=== PATIENT | male | born 1950 | race Caucasian/White ===

== ENCOUNTER → 2018-07-20 08:41 | Outpatient (CLI) | payer OTHER, MEDICARE, SELFPAY ==
--- NOTE | 2018-07-20 | CI_ITS ---
Cerebrovascular Exam Indications: 785.9 Bruit. 780.4 Dizziness and giddiness. IMPRESSIONS 1. The bilateral vertebral arteries are patent with normal antegrade flow. 2. Study suggests 20-49% stenosis involving the right internal carotid artery. No change from the prior study. 3. Study suggests 20-49% (upper limit)stenosis involving the left internal carotid artery. History: Risk factors: Current tobacco use. Hypertension. Diabetes mellitus. Carotid duplex study. Complete study and Doppler flow study including spectral analysis, color and reyes scale imaging. Location: Vascular laboratory. Patient status: Outpatient. Tables: Arterial flow: + +--------+--------+ Location V sys V ed + +--------+--------+ Right CCA - proximal 91.9cm/s 11cm/s + +--------+--------+ Right CCA - distal 81.7cm/s 7.9cm/s + +--------+--------+ Right ECA 123cm/s 10.2cm/s + +--------+--------+ Right ICA - proximal 88cm/s 11.8cm/s + +--------+--------+ Right ICA - mid 45.6cm/s 13.4cm/s + +--------+--------+ Right ICA - distal 47.1cm/s 10.2cm/s + +--------+--------+ Right vertebral 70.7cm/s 1.6cm/s + +--------+--------+ Left CCA - proximal 70.7cm/s 11cm/s + +--------+--------+ Left CCA - distal 47.9cm/s 11.8cm/s + +--------+--------+ Left ECA 98.9cm/s 12.1cm/s + +--------+--------+ Left ICA - proximal 91.9cm/s 14.7cm/s + +--------+--------+ Left ICA - mid 65.1cm/s 10.7cm/s + +--------+--------+ Left ICA - distal 54.9cm/s 13.8cm/s + +--------+--------+ Left vertebral 61.3cm/s 10.8cm/s + +--------+--------+ Velocity ratios: + + + + + + Right, V sys Right, V ed Left, V sys Left, V ed + + + + + + Max ICA/dist CCA 1.08 1.7 1.92 1.25 + + + + + + (Report amended ) Electronically signed by: Adrian Chua [id number]
== END ==
PROVIDERS: PCP Family Medicine; Visit Provider Family Medicine
DX: R09.89 Other specified symptoms and signs involving the circulatory and respiratory systems (principal)
CPT/HCPCS: 93880

== ENCOUNTER 2020-04-14 00:57 | Emergency (ER) | payer MEDICARE, SELFPAY ==
[2020-04-14] VITALS (17 sets, daily range): BP systolic 90–210; BP diastolic 61–96; PULSE 70–110; RESP 15–98; TEMP 36.1–36.9; O2SAT 92–99; BMI 45.4
--- NOTE | 2020-04-14 00:53 | ECG_ITS ---
APPROVED REPORT Exam: Resting ECG HR:90 bpm ECG Measurements Heart Rate 90 AXES QRSd 116 QRS -82 QT 384 T 63 QTc 469 Conclusion Sinus rhythm,First Degree AV Block, with premature ventricular and PAC'S Ventricular Pacemaker Abnormal ECG Electronically signed by : Javi Santos, 04/15/2020 17:09:49
--- NOTE | 2020-04-14 01:12 | XR_ITS ---
PROCEDURE: XR PELVIS 1-2V CLINICAL INDICATION: fall Pain following injury COMPARISON: No exams were available for comparison TECHNIQUE: XR Pelvis AP View FINDINGS: There is extensive vascular calcification and mild osteoarthritic changes of the hips. Degenerative disc disease lumbar spine. No lytic or blastic change. IMPRESSION: No acute findings. Dictated by: Rob Mcneil MD 04/14/2020 06:28 Rob Mcneil MD in [facility] 04/14/2020 06:28
--- NOTE | 2020-04-14 01:12 | CT_ITS ---
PROCEDURE: CT FACIAL BONES WO CON CLINICAL HISTORY: fall Posttraumatic pain with contusion COMPARISON: No exams were available for comparison TECHNIQUE: Axial images obtained with sagittal and coronal reformats. All CT scans at the facility use one or more dose reduction, viz: automated exposure control, ma/kV adjustment per patient size (including targeted exams where dose is matched to indication, i.e. head), or iterative reconstruction technique. FINDINGS: Bones: Unremarkable. No fracture, lytic, or blastic changes evident. Extracranial soft tissues: Unremarkable. Sinuses: Mild mucosal thickening involves the maxillary sinus on the left with mucous posteriorly with intermixed air Orbits: Unremarkable. Other: No other pertinent findings. IMPRESSION: No acute finding Dictated by: Rob Mcneil MD 04/14/2020 07:53 oRb Mcneil MD in [facility] 04/14/2020 07:53
--- NOTE | 2020-04-14 01:12 | CT_ITS ---
PROCEDURE: CT CERVICAL SPINE WO CON CLINICAL INDICATION: fall Posttraumatic pain COMPARISON: No exams were available for comparison TECHNIQUE: Axial images obtained with sagittal and coronal reformats. All CT scans at the facility use one or more dose reduction, viz: automated exposure control, ma/kV adjustment per patient size (including targeted exams where dose is matched to indication, i.e. head), or iterative reconstruction technique. Axial spiral CT scanning performed of the cervical spine beginning at the base of the skull and continuing to the upper T-spine. 3-D multiplanar reconstruction with 3-D manipulation of volumetric data set in image rendering was completed by the radiologist and/or technologist with the supervision of the radiologist on independent workstation. FINDINGS: No fracture or dislocation is evident. There is straightening of the cervical lordosis. C2-C3: Mild degenerative disc disease with mild right-sided foraminal narrowing. C3-C4: Degenerative disc disease. 3 mm retrolisthesis of C3 on C4. C4-C5: Mild degenerative disc disease. C5-C6: Mild degenerative disc disease. C6-C7: Mild degenerative disc disease. Lung apices are clear. There is generalized vascular calcification. IMPRESSION: Cervical spondylosis, no acute fracture Dictated by: Rob Mcneil MD 04/14/2020 07:57 Rob Mcneil MD in [facility] 04/14/2020 07:57
--- NOTE | 2020-04-14 01:12 | XR_ITS ---
PROCEDURE: XR KNEE LT 3V CLINICAL INDICATION: fall Posttraumatic pain COMPARISON: No exams were available for comparison FINDINGS: No fracture or dislocation. No lytic or blastic change. There is normal mineralization. There are moderate osteoarthritic changes involving all 3 compartments. There is diffuse vascular calcification. Other findings:Clips are present at the medial aspect of the knee IMPRESSION: Osteoarthritis, no acute fracture Dictated by: Rob Mcneil MD 04/14/2020 06:29 Rob Mcneil MD in [facility] 04/14/2020 06:29
--- NOTE | 2020-04-14 01:12 | CT_ITS ---
PROCEDURE: CT HEAD/BRAIN WO CON CLINICAL INDICATION: fall Posttraumatic pain, Blunt trauma with injury and pain, contusion/abrasion or hematoma following injury COMPARISON: No exams were available for comparison TECHNIQUE: Axial images obtained. All CT scans at the facility use one or more dose reduction, viz: automated exposure control, ma/kV adjustment per patient size (including targeted exams where dose is matched to indication, i.e. head), or iterative reconstruction technique. FINDINGS: No midline shift, mass effect, intracranial hemorrhage, hydrocephalus, or extra-axial fluid collection is evident. There is generalized atrophy with hypoattenuation of the periventricular white matter consistent with microangiopathic changes. The calvarium has an unremarkable appearance. No mastoid effusion. Mucosal thickening left maxillary sinus IMPRESSION: No acute intracranial finding Dictated by: Rob Mcneil MD 04/14/2020 07:58 Rob Mcneil MD in [facility] 04/14/2020 07:58
--- NOTE | 2020-04-14 01:12 | XR_ITS ---
PROCEDURE: XR HAND RT 2V CLINICAL INDICATION: fall Pain COMPARISON: No exams were available for comparison FINDINGS: No fracture or dislocation. No lytic or blastic change. There is normal mineralization. Mild osteoarthritic changes at the 1st metacarpal-carpal joint Other findings:None. IMPRESSION: No acute findings. Dictated by: Rob Mcneil MD 04/14/2020 06:30 Rob Mcneil MD in [facility] 04/14/2020 06:30
--- NOTE | 2020-04-14 01:12 | XR_ITS ---
PROCEDURE: XR CHEST PORTABLE CLINICAL HISTORY: fall Posttraumatic pain COMPARISON: No exams were available for comparison FINDINGS: The cardiomediastinal silhouette and pulmonary vascularity are within normal limits. The lungs are clear without infiltrates, suspicious nodules, or pleural effusions. No acute bony abnormalities. IMPRESSION: No acute findings. Dictated by: Rob Mcneil MD 04/14/2020 06:27 Rob Mcneil MD in [facility] 04/14/2020 06:27
[2020-04-14 01:25] LABS: ABG Base Excess -12.8 mmol/L (-2.4-2.3); ABG Oxygen Saturation 96 % (90-100); ABG PCO2 37.9 mmhg (35.0-45.0); ABG PH 7.22 mmol/L (7.35-7.45); ABG PO2 97.4 mmhg (80-100); ABG TCO2 16.2 mmhg (23-27)
[2020-04-14 01:26] LABS: Basophils # 0.1 K/mm3 (0-0.2); Basophils % 0.5 % (0.1-2.0); Eosinophils # 0.1 K/mm3 (0.0-0.4); Hematocrit 52.1 % (42.0-52.0); Hemoglobin 16.5 g/dL (14.1-18.0); Lymphocytes # 1.7 K/mm3 (0.7-4.5); Mean Corpuscular HGB Conc 31.8 g/dL (31.8-35.4); Mean Corpuscular Hemoglobin 30.8 pg (27.0-31.2); Mean Platelet Volume 8.6 fl (7.4-10.4); Monocytes # 0.5 K/mm3 (0.1-1.0); Monocytes % 5.1 % (1.7-9.3); Neutrophils # 6.8 K/mm3 (1.8-7.8); Neutrophils % 74.5 % (37.0-80.0); Platelet Count 263 K/mm3 (142-424); Red Blood Count 5.37 M/mm3 (4.60-6.20); Red Cell Distribution Width 15.7 % (11.5-17.5); White Blood Count 9.1 K/mm3 (4.8-10.8)
[2020-04-14 01:26] LABS: Allen's Test Non Applicable; Source Left Radial
[2020-04-14 01:32] LABS: Alanine Aminotransferase 51 U/L (12-78); Albumin Level 4.3 g/dl (3.5-5.0); Albumin/Globulin Ratio 1.5 (1.1-1.8); Alkaline Phosphatase 79 U/L (38-126); Anion Gap 26.3 mEq/L (5-15); Aspartate Amino Transferase 63 U/L (17-59); Bilirubin,Total 0.4 mg/dl (0.2-1.3); Blood Urea Nitrogen 16 mg/dl (9-20); Calcium 10.2 mg/dl (8.4-10.2); Carbon Dioxide 17 mmol/L (22.0-30.0); Chloride 98 mmol/L (98-107); Creatinine Clearance Estimated 37 mL/min (50-200); Estimated Glomerular Filt Rate 33 ml/min (>60); GFR (African American) 40 ML/MIN (>60); Globulin 2.8 g/dL (1.3-3.2); Glucose 290 mg/dl (74-100); Potassium 3.3 mmoL/L (3.5-5.1); Sodium 138 mmol/L (136-145); Total Protein,Serum 7.1 g/dl (6.3-8.2)
--- NOTE | 2020-04-14 01:43 | PC.NURSE ---
pt refuses catheter. advised we would give him a few more mins
[2020-04-14 01:44] LABS: Ethyl Alcohol < 10 mg/dl (0-10)
[2020-04-14 01:59] LABS: Free T4 (Free Thyroxine) 0.99 ng/dl (0.78-2.19)
[2020-04-14 02:01] LABS: Lactic Acid 9.9 mmol/L (0.7-2.1)
[2020-04-14 02:02] LABS: Thyroid Stimulating Hormone 5.86 uIU/mL (0.465-4.68)
[2020-04-14 02:03] LABS: Ammonia 33 umol/L (9-30)
--- NOTE | 2020-04-14 02:05 | CT_ITS ---
PROCEDURE: CT LUMBAR SPINE WO CON CLINICAL HISTORY: fall Posttraumatic pain, low back pain, fall with injury and pain COMPARISON: No exams were available for comparison TECHNIQUE: Axial images obtained with sagittal and coronal reformats. All CT scans at the facility use one or more dose reduction, viz: automated exposure control, ma/kV adjustment per patient size (including targeted exams where dose is matched to indication, i.e. head), or iterative reconstruction technique. FINDINGS: There is normal alignment. No acute fracture or dislocation is evident. T10-T11: Degenerative disc disease with facet and ligamentum hypertrophy with right lateral recess narrowing. T11-T12: Degenerative disc disease with facet and ligamentum hypertrophy. T12-L1: Degenerate disc disease with mild bulging disc. L1-L2: Degenerate disc disease. L2-L3: Degenerative disc disease with bulging disc and mild facet and ligamentum hypertrophy with borderline narrowing of the canal. L3-L4: Degenerate disc disease with bulging disc with bilateral foraminal narrowing and narrowing of the canal. L4-5: Prior laminectomy with vacuum disc and degenerative disc disease with severe right foraminal narrowing and moderate left foraminal narrowing. L5-S1: Degenerative disc disease with bulging disc with facet and ligamentum hypertrophy with severe bilateral foraminal narrowing. Diffuse atheromatous calcification of the aorta and iliac vessels with severe stenosis of the ostium of both iliac arteries and aneurysmal fusiform dilatation of the abdominal aorta at 4.3 by 4.4 cm. IMPRESSION: 1. No acute fracture. 2. Multilevel moderate to severe lumbar spondylosis with canal stenosis and lateral recess and foraminal narrowing. Please see above for detailed description at each level. Postsurgical changes at L4-5. 3. Abdominal aortic aneurysm at 4.4 cm with severe calcific plaque and severe narrowing of the ostium of both iliac arteries. Dictated by: Rob Mcneil MD 04/14/2020 07:49 Rob Mcneil MD in [facility] 04/14/2020 07:49
--- NOTE | 2020-04-14 02:05 | HMH.EDFALL ---
ED Disposition Clinical Impression: DDD (degenerative disc disease), lumbar, Foraminal stenosis of lumbar region, AAA (abdominal aortic aneurysm) without rupture, Metabolic acidosis, Lactic acidosis, Tobacco use, Elevated troponin I level Fall Qualifiers: Encounter type: initial encounter Qualified Code(s): W19.XXXA - Unspecified fall, initial encounter Syncope Qualifiers: Syncope type: unspecified Qualified Code(s): R55 - Syncope and collapse Lumbar spinal stenosis Qualifiers: Neurogenic claudication status: unspecified Qualified Code(s): M48.061 - Spinal stenosis, lumbar region without neurogenic claudication Diabetes mellitus Qualifiers: Diabetes mellitus type: type 2 Diabetes mellitus halfway insulin use: unspecified halfway insulin use status Diabetes mellitus complication status: with other specified complication Qualified Code(s): E11.69 - Type 2 diabetes mellitus with other specified complication Obesity Qualifiers: Obesity type: due to excess calories Obesity classification: adult class 3 (BMI >= 40) Serious obesity comorbidity presence: with serious comorbidity Body mass index: BMI 45.0-49.9 Qualified Code(s): E66.01 - Morbid (severe) obesity due to excess calories; Z68.42 - Body mass index [BMI] 45.0-49.9, adult Chronic renal insufficiency, stage III (moderate) Qualifiers: Chronic kidney disease stage 3 subtype: stage 3b (GFR 30-44) Qualified Code(s): N18.32 - Chronic kidney disease, stage 3b Disposition: Xfer Short-Term Hosp Condition on Discharge: Serious Referrals: Noe Moore MD [Primary Care Provider] - - Critical Care Critical Care Time: Yes Attestation: On 04/14/20, the high probability of a clinically significant, sudden or life threatening deterioration of the following system(s) required my full and direct attention, intervention and personal management. The time I documented below is in addition to time spent performing reported procedures but includes the following listed in this critical care notation. Total Critical Care Time: 120 Vital system(s) involved:: Metabolic Failure My critical care processes included: Assessment & monitoring of V/S, Initial and Re-exams, Data Review/Interpretation, Coordinating Care, Medication Orders and management, Documentation Medical Decision Making - Medical Records Medical records reviewed: Yes: I reviewed the patient's medical records. - Lesetr Inquiry Pt receiving controlled substance: No Vital Signs: 04/14/20 01:03 04/14/20 01:27 04/14/20 01:38 Temperature 97 F L 97.0 F L Temperature Source Rectal Rectal Pulse Rate [Right] 73 94 H 110 H Respiratory Rate 18 20 23 Blood Pressure [Left Arm] 140/82 210/96 H Blood Pressure [Right Arm] 90/61 L 140/82 Blood Pressure Mean [Left Arm] 101 134 Blood Pressure Mean [Right Arm] 70 101 Blood Pressure Source [Left Arm] Automatic Cuff Manual Cuff/ Auscultation Blood Pressure Source [Right Arm] Automatic Cuff Automatic Cuff Blood Pressure Position [Left Arm] Sitting Sitting Blood Pressure Position [Right Arm] Sitting 02 Sat by Pulse Oximetry 92 L 98 99 Oxygen Delivery Method Nasal Cannula Nasal Cannula Nasal Cannula Oxygen Flow Rate (LPM) 2 2 2 04/14/20 02:00 04/14/20 02:30 04/14/20 03:00 Temperature Temperature Source Pulse Rate [Right] 91 H Respiratory Rate 15 Blood Pressure [Left Arm] 144/81 H 116/68 93/67 L Blood Pressure [Right Arm] Blood Pressure Mean [Left Arm] 102 84 75 Blood Pressure Mean [Right Arm] Blood Pressure Source [Left Arm] Automatic Cuff Automatic Cuff Blood Pressure Source [Right Arm] Blood Pressure Position [Left Arm] Blood Pressure Position [Right Arm] 02 Sat by Pulse Oximetry 97 Oxygen Delivery Method Oxygen Flow Rate (LPM) 04/14/20 04:30 04/14/20 04:41 04/14/20 05:00 Temperature Temperature Source Pulse Rate [Right] 77 95 H 80 Respiratory Rate 18 16 22 Blood Pressure [Left Arm] 181/82 H 122/91 H 167/77 H Blood
[2020-04-14 02:07] LABS: Coronavirus 19 IgG Antibody Negative (Negative); Coronavirus 19 IgM Antibody Negative (Negative)
--- NOTE | 2020-04-14 03:12 | PC.NURSE ---
paged pharmacy oncall for bicarb orders per md request
--- NOTE | 2020-04-14 03:36 | PC.NURSE ---
received call back from sigrid hoover. suggested instead to run the sodium bicarb at 4 hours instead of 2. further advises to check intermittently for lactic and abg results. then suggests to run a second liter with 3 amps over 24 hours
[2020-04-14 03:40] LABS: Appearance,Urine SL CLOUDY (Clear); Blood, Urine 2+ (Negative); Color,Urine YELLOW (Yellow); Glucose,Urine (UA) Negative (Negative); Ketones,Urine Negative (Negative); Leukocyte Esterase,Urine Negative (Negative); Nitrate,Urine Negative (Negative); PH,Urine 5.5 (5.0-8.5); Protein,Urine 3+ (Negative); Specific Gravity, Urine >= 1.030 (1.005-1.030); Urobilinogen,Urine 0.2 EU/dl (0.2)
[2020-04-14 03:41] LABS: Microscopic, Urine URINE MICROSCOPIC (MICROSCOPIC)
[2020-04-14 03:44] LABS: Bilirubin,Urine Negative (Negative)
[2020-04-14 03:45] LABS: Amylase 83 U/L (30-110); Lipase 260 U/L (23-300)
[2020-04-14 03:45] LABS: Amorphous Sediment,Urine 2+ /lpf; Mucus,Urine 4+ /lpf
[2020-04-14 03:48] LABS: Amphetamine/Metha Screen,Urine Negative ng/ml (<1000); Barbiturates Screen,Urine Negative ng/ml (<200)
[2020-04-14 03:49] LABS: Benzodiazepines Screen,Urine Positive ng/ml (<200)
[2020-04-14 03:50] LABS: Cannabinoid Screen,Urine Negative ng/ml (<50); Cocaine Screen,Urine Negative ng/ml (<300)
[2020-04-14 03:51] LABS: Methadone Screen,Urine Negative ng/ml (<300)
[2020-04-14 03:52] LABS: Opiate Screen,Urine Negative ng/ml (<300); Phencyclidine Screen,Urine Negative ng/ml (<25)
[2020-04-14 04:02] LABS: Procalcitonin 0.322 ng/mL (0.0-2.0)
[2020-04-14 04:05] LABS: ABG Base Excess -6.8 mmol/L (-2.4-2.3); ABG Oxygen Saturation 89 % (90-100); ABG PCO2 44.3 mmhg (35.0-45.0); ABG PH 7.27 mmol/L (7.35-7.45); ABG PO2 64.7 mmhg (80-100); ABG TCO2 21.4 mmhg (23-27)
[2020-04-14 04:07] LABS: Allen's Test Non Applicable; Oxygen 2 lpm %; Source Left Radial
[2020-04-14 04:09] LABS: Troponin I 0.12 ng/ml (0.00-0.034)
--- NOTE | 2020-04-14 04:18 | PC.NURSE ---
called [facility] for [facility] elie Miller advised that they do not have an icu bed at this time. will possibly have one around 8 am in the morning. she advised she will call her supervisor [facility] and call us back to give permission to call other facilities.
--- NOTE | 2020-04-14 04:26 | PC.NURSE ---
Dr. Meyer is currently on the phone with seeking a room.
--- NOTE | 2020-04-14 04:31 | PC.NURSE ---
[facility] on divert
--- NOTE | 2020-04-14 04:38 | PC.NURSE ---
still awaiting for [facility] to call back. will call back at 0500 if we have not heard back
[2020-04-14 04:39] LABS: Reflex Lactic Add Lactic Reflex
[2020-04-14 04:53] LABS: Anion Gap 13.2 mEq/L (5-15); Blood Urea Nitrogen 18 mg/dl (9-20); Carbon Dioxide 23 mmol/L (22.0-30.0); Chloride 103 mmol/L (98-107); Creatinine Clearance Estimated 46 mL/min (50-200); Estimated Glomerular Filt Rate 43 ml/min (>60); GFR (African American) 52 ML/MIN (>60); Potassium 4.2 mmoL/L (3.5-5.1); Sodium 135 mmol/L (136-145)
[2020-04-14 04:55] LABS: Calcium 8.6 mg/dl (8.4-10.2); Glucose 224 mg/dl (74-100)
--- NOTE | 2020-04-14 05:05 | PC.NURSE ---
received return call from elie sweeney for the evening shift. she states they will not have a bed for certain before shift change and maybe not even then. advised that we can definitely look somewhere else for bed placement and if no luck then when can check back with them after 0800. confirmed that she was giving permission for us to admit elsewhere besides the [facility]. she states yes, my supervisor [employer] is aware of the situation and he needs a bed somewhere even though we don't have one at this time. .
[2020-04-14 06:40] LABS: Reflex Lactic (2 hrs) Add Lactic Reflex
--- NOTE | 2020-04-14 06:42 | PC.NURSE ---
patient was accepted to the [facility]. confirmation per Ryan at [phone] upon the conditional negative covid swab result. Patient and are being notified of situation. Ryan states she will call back after the Day Attending arrives to give a tentative bed assignment and number to call report to.
[2020-04-14 06:50] LABS: Adenovirus,PCR Not Detected (NotDetected); Bordetella Pertussis Not Detected (NotDetected); Chlamydophila Pneumoniae, PCR Not Detected (NotDetected); Coronavirus 19, PCR Not Detected (NotDetected); Coronavirus 229E Not Detected (NotDetected); Coronavirus NL63 Not Detected (NotDetected); Coronavirus OC43 Not Detected (NotDetected); Coronovirus HKU1,PCR Not Detected (NotDetected); Human Metapneumovirus Not Detected (NotDetected); Influenza A, PCR Not Detected (NotDetected); Influenza AH1, 2009 Not Detected (NotDetected); Influenza AH1, PCR Not Detected (NotDetected); Influenza AH3,PCR Not Detected (NotDetected); Influenza B, PCR Not Detected (NotDetected); Mycoplasma Pneumoniae, PCR Not Detected (NotDetected); Parainfluenza 1, PCR Not Detected (NotDetected); Parainfluenza 2, PCR Not Detected (NotDetected); Parainfluenza 3, PCR Not Detected (NotDetected); Parainfluenza 4, PCR Not Detected (NotDetected); Respiratory Syncytial Virus Not Detected (NotDetected); Rhinovirus/Enterovirus Not Detected (NotDetected)
--- NOTE | 2020-04-14 06:56 | PC.NURSE ---
dr canada on phone with
--- NOTE | 2020-04-14 06:57 | PC.NURSE ---
on phone with dr osullivan from the [place].
--- NOTE | 2020-04-14 07:03 | PC.NURSE ---
dr. osullivan accepted transfer to the [facility] at the [facility]
--- NOTE | 2020-04-14 07:22 | PC.NURSE ---
pt resting alert and oriented x 4 skin warm and dry. bruising noted to lt side forehead and lt side of face. pt and updated on plan of care.
--- NOTE | 2020-04-14 09:30 | PC.NURSE ---
REPORT TO [facility]
--- NOTE | 2020-04-14 09:53 | PC.NURSE ---
REPORT CALLED TO RENALDO DE LA CRUZ RN
== END 2020-04-14 10:03 | disposition short-term general hospital (02) ==
PROVIDERS: Emergency Provider Emergency Medicine; PCP Family Medicine
DX: R55 Syncope and collapse (principal); M51.36 Other intervertebral disc degeneration, lumbar region; I71.4 Abdominal aortic aneurysm, without rupture; E87.2 Acidosis; M48.061 Spinal stenosis, lumbar region without neurogenic claudication; N18.32 Chronic kidney disease, stage 3b; E11.65 Type 2 diabetes mellitus with hyperglycemia; F17.210 Nicotine dependence, cigarettes, uncomplicated; Z01.84 Encounter for antibody response examination; W01.0XXA Fall on same level from slipping, tripping and stumbling without subsequent striking against object, initial encounter; Y92.012 Bathroom of single-family (private) house as the place of occurrence of the external cause; E66.01 Morbid (severe) obesity due to excess calories; Z68.42 Body mass index [BMI] 45.0-49.9, adult; Z79.899 Other long term (current) drug therapy
CPT/HCPCS: 70450; 70486; 71045; 72125; 72131; 72170; 73120; 73562; 80048; 80053; 80305; 81001; 82140; 82150; 82803; 83605; 83690; 84145; 84439; 84443; 84484; 85025; 86328; 87040; 87581; 87633; 87798; 93005; 96365; 96367; 96375; 99285; J2405

== ENCOUNTER → 2020-06-19 11:27 | Outpatient (CLI) | payer MEDICARE, OTHER, SELFPAY | PROVIDERS: PCP Family Medicine; Visit Provider Family Medicine | DX: I49.9 Cardiac arrhythmia, unspecified (principal) | CPT/HCPCS: 93225; 93226 ==

== ENCOUNTER → 2021-04-02 11:14 | Outpatient (CLI) | payer MEDICARE, OTHER, SELFPAY ==
--- NOTE | 2021-04-02 11:22 | XR_ITS ---
PROCEDURE: XR CHEST 2V CLINICAL HISTORY: COUGH COMPARISON: CR XR CHEST PORTABLE from 04/14/2020 FINDINGS: The cardiomediastinal silhouette and pulmonary vascularity are within normal limits. There is mild diffuse arteriosclerotic calcification of the aortic arch and descending thoracic aorta. The lungs are clear without infiltrates, suspicious nodules, or pleural effusions. No acute bony abnormalities. IMPRESSION: No acute findings. Dictated by: Dr. Kalyan Grant MD 04/02/2021 12:10 Dr. Kalyan Grant MD in [facility] 04/02/2021 12:10
== END ==
PROVIDERS: PCP Family Medicine; Visit Provider Family Medicine
DX: R05.9 Cough, unspecified (principal)
CPT/HCPCS: 71046

== ENCOUNTER → 2021-09-04 11:38 | Outpatient (CLI) | payer MEDICARE, SELFPAY ==
--- NOTE | 2021-09-04 11:47 | XR_ITS ---
FINAL REPORT CLINICAL HISTORY: PNEUMONIA OF BOTH UPPER LOBES DUE TO INFECTIOUS ORGANISM, soa COMPARISON: April 02, 2021 FINDINGS: Two views of the chest were obtained. The heart size and pulmonary vascularity are within normal limits. The mediastinum is normal. There are worsening bibasilar pulmonary opacities consistent with atelectasis or pneumonia. Small pleural effusions are worse. There is no pneumothorax. The bony thorax is intact. IMPRESSION: Worsening bibasilar atelectasis or pneumonia. Small pleural effusions, worse. Reviewed, Interpreted and Dictated by Vin Spicer III, MD Transcribed by Eden Dunn Authenticated by Vin Spicer III, MD on 09/04/2021 01:20:55 PM [facility]
== END ==
PROVIDERS: PCP Family Medicine; Visit Provider Family Medicine
DX: J18.9 Pneumonia, unspecified organism (principal)
CPT/HCPCS: 71046

== ENCOUNTER 2021-11-20 11:29 | Outpatient (CLI) | payer MEDICARE, SELFPAY ==
[2021-11-20 11:37] VITALS: BMI 29.7
[2021-11-20 12:19] LABS: Hematocrit 27.4 % (42.0-52.0); Hemoglobin 8.9 g/dL (14.1-18.0)
--- NOTE | 2021-11-20 13:43 | PC.NURSE ---
1200 - [place] RN VANDANA BLOOD FOR TYPE AND CROSSMATCH OF 1 UNIT PRBC'S. SAVANNA FROM LAB PRESENT. PT TO RETURN IN 2 DAYS FOR TRANSFUSION.
== END 2021-11-20 12:10 | disposition home or self-care (01) ==
LOC: INF 11:31
PROVIDERS: PCP Family Medicine; Visit Provider Family Medicine
DX: D64.9 Anemia, unspecified (principal)
CPT/HCPCS: 36415; 85014; 85018; 86850

== ENCOUNTER 2021-11-22 09:52 | Outpatient (CLI) | payer MEDICARE, OTHER, SELFPAY ==
[2021-11-22] VITALS (12 sets, daily range): BP systolic 144–154; BP diastolic 53–74; PULSE 45–68; RESP 20; TEMP 36.1–36.9; O2SAT 95–97; BMI 29.4
[2021-11-22 14:00] LABS: Hematocrit 30.3 % (42.0-52.0); Hemoglobin 9.6 g/dL (14.1-18.0)
== END 2021-11-22 13:45 | disposition home or self-care (01) ==
LOC: INF 09:53
PROVIDERS: PCP Family Medicine; Visit Provider Family Medicine
DX: D64.9 Anemia, unspecified (principal)
CPT/HCPCS: 36430; 85014; 85018; P9016

== ENCOUNTER → 2023-01-16 11:11 | Outpatient (CLI) | payer MEDICARE, SELFPAY ==
[2023-01-16 12:04] LABS: Basophils % 0.6 % (0.1-2.0); Eosinophils # 0.1 K/mm3 (0.0-0.4); Eosinophils % 1.5 % (0.1-12.0); Hematocrit 32.5 % (42.0-52.0); Hemoglobin 9.8 g/dL (14.1-18.0); Lymphocytes # 1.2 K/mm3 (0.7-4.5); Lymphocytes % 22.4 % (10-50); Mean Corpuscular HGB Conc 30.3 g/dL (31.8-35.4); Mean Corpuscular Volume 88.9 fl (80-94); Mean Platelet Volume 8.5 fl (7.4-10.4); Monocytes # 0.3 K/mm3 (0.1-1.0); Neutrophils # 3.8 K/mm3 (1.8-7.8); Neutrophils % 69.4 % (37.0-80.0); Platelet Count 278 K/mm3 (142-424); Red Blood Count 3.65 M/mm3 (4.60-6.20); White Blood Count 5.5 K/mm3 (4.8-10.8)
== END ==
PROVIDERS: PCP Family Medicine; Visit Provider Family Medicine
DX: D64.9 Anemia, unspecified (principal)
CPT/HCPCS: 36415; 85025

== ENCOUNTER 2023-04-13 23:49 | Inpatient (IN) | payer OTHER, MEDICARE, SELFPAY ==
[2023-04-13 23:49] VITALS: BP 145/107; PULSE 95; RESP 30; TEMP 36.6; O2SAT 85; BMI 26.4
[2023-04-14] VITALS (15 sets, daily range): BP systolic 127–193; BP diastolic 65–99; PULSE 49–98; RESP 17–30; TEMP 36.5–36.7; O2SAT 3–98; BMI 26.9
--- NOTE | 2023-04-14 | ECG_ITS ---
APPROVED REPORT Exam: Resting ECG HR:86 bpm ECG Measurements Heart Rate 86 AXES QRSd 150 QRS -84 QT 409 T 86 QTc 452 Conclusion ATRIAL FIBRILLATION LEFT AXIS DEVIATION [QRS AXIS < -30] INTRAVENTRICULAR CONDUCTION DELAY [130+ ms QRS DURATION] ABNORMAL ECG UNCONFIRMED REPORT Electronically signed by : Rivas Wilkinson MD 04/15/2023 21:14:52
--- NOTE | 2023-04-14 | XR_ITS ---
PROCEDURE INFORMATION: Exam: XR Chest Exam date and time: 04/14/2023 12:21 AM Age: 72 years old Clinical indication: Shortness of breath; Additional info: SOA, copd, hypoxia TECHNIQUE: Imaging protocol: Radiologic exam of the chest. Views: 1 view. COMPARISON: CR XR CHEST 2V 09/04/2021 11:51 AM FINDINGS: Lungs: Right middle lobe and bibasilar opacities. Pleural spaces: Right and possible left pleural effusions. No pneumothorax. Heart/Mediastinum: Calcified atherosclerotic changes of the thoracic aorta. No cardiomegaly. Bones/joints: Unremarkable. IMPRESSION: 1. Right middle lobe and bibasilar opacities concerning for multifocal pneumonia. 2. Right and possible left pleural effusions.
[2023-04-14 00:11] LABS: VBG Base Excess -7.5 mmol/L (-2.4-2.3); VBG HCO3 18.1 mmol/L (23-30); VBG Oxygen Saturation 88.9 % (50-70); VBG PCO2 33.3 mmol/L (35-51); VBG PH 7.35 mmol/L (7.31-7.41); VBG PO2 59.1 mmol/L (28-40); VBG Total CO2 19.1 mmol/L (23-27)
[2023-04-14 00:15] LABS: Basophils # 0.1 K/mm3 (0-0.2); Basophils % 0.5 % (0.1-2.0); Eosinophils # 0.1 K/mm3 (0.0-0.4); Eosinophils % 0.9 % (0.1-12.0); Hemoglobin 11.3 g/dL (14.1-18.0); Lymphocytes # 1.1 K/mm3 (0.7-4.5); Lymphocytes % 11.4 % (10-50); Mean Corpuscular HGB Conc 31.3 g/dL (31.8-35.4); Mean Corpuscular Hemoglobin 25.9 pg (27.0-31.2); Mean Corpuscular Volume 82.7 fl (80-94); Mean Platelet Volume 9.5 fl (7.4-10.4); Monocytes # 0.7 K/mm3 (0.1-1.0); Monocytes % 7.1 % (1.7-9.3); Neutrophils # 7.4 K/mm3 (1.8-7.8); Neutrophils % 80.1 % (37.0-80.0); Platelet Count 204 K/mm3 (142-424); Red Blood Count 4.36 M/mm3 (4.60-6.20); Red Cell Distribution Width 18.1 % (11.5-17.5); White Blood Count 9.2 K/mm3 (4.8-10.8)
--- NOTE | 2023-04-14 00:25 | EXP.HP ---
History of Present Illness *Admission Date: 04/14/23 *Reason for visit:: SOB *History of present illness: This is a 72-year-old male, PMHx of coronary artery disease, COPD, chronic renal insufficiency, diabetes presented to ED with worsening shortness of breath since Thursday. Reports no fevers at home. He was found by EMS to be satting in the mid 80s on room air. He reports no significant chest pain. Reports mild nonspecific abdominal pain and decreased appetite over the last couple of days. No history of A-fib. however On arrival, patient is afebrile, in A-fib with wide-complex, hypertensive, satting 85% on room air, moving all extremities spontaneously. Admitted for further work up. . [facility] Disclaimer: The information contained in this section may have been updated after the patient was seen, as this information can be updated by other users. Medical History (Updated 04/14/23 @ 11:53 by Cristofer Longo MD) CAD (coronary artery disease) CHF (congestive heart failure) COPD (chronic obstructive pulmonary disease) Diabetes Hyperlipidemia associated with type 2 diabetes mellitus Hypertension Surgical History (Updated 04/14/23 @ 01:46 by Trupti Callejas RN) H/O Spinal surgery History of cardiac cath S/P femoral-popliteal bypass surgery Family History (Updated 04/14/23 @ 01:47 by Trupti Callejas RN) Family history of myocardial infarction Mother Lung cancer Father Social History Smoking Status: Current every day smoker alcohol intake: never current occupational status: employed Travel in the last 8 weeks: None household members: spouse housing: house Meds Home Medications and Allergies Home Medications Medication Instructions Recorded Confirmed Type atorvastatin 40 mg tablet 40 mg PO HS Cholesterol 04/14/20 04/14/23 History alprazolam 1 mg tablet 1 mg PO TID 04/14/23 04/14/23 History amlodipine 5 mg tablet 5 mg PO DAILY 04/14/23 04/14/23 History ascorbic acid (vitamin C) 500 mg 500 mg PO HS 04/14/23 04/14/23 History chewable tablet (Vitamin C) aspirin 81 mg tablet,delayed 81 mg PO DAILY 04/14/23 04/14/23 History release empagliflozin 10 mg tablet 10 mg PO DAILY 04/14/23 04/14/23 History (Jardiance) ferrous sulfate 325 mg (65 mg 325 mg PO HS 04/14/23 04/14/23 History iron) tablet,delayed release furosemide 40 mg tablet 40 mg PO DAILY 04/14/23 04/14/23 History pantoprazole 40 mg tablet,delayed 40 mg PO DAILY 04/14/23 04/14/23 History release (Protonix) New Prescriptions to Start Prescriptions: Allergies Allergy/AdvReac Type Severity Reaction Status Date / Time No Known Drug Allergies Allergy Mild Verified 04/14/20 01:18 [NO KNOWN DRUG ALLERGIES] Exam Data for Last 24 hours Vital signs and Labs for Last 24 Hours: Temp Pulse Resp BP Pulse Ox O2 Del Method 97.9 F 95 H 30 H 145/107 H 85 L Room Air 04/13/23 23:49 04/13/23 23:49 04/13/23 23:49 04/13/23 23:49 04/13/23 23:49 04/13/23 23:49 Laboratory Results - last 24 hr 04/13/23 00:00: WBC 9.2, RBC 4.36 L, Hgb 11.3 L, Hct 36.0 L, MCV 82.7, MCH 25.9 L, MCHC 31.3 L, RDW 18.1 H, Plt Count 204, MPV 9.5, Neut % (Auto) 80.1 H, Lymph % (Auto) 11.4, [place] % (Auto) 7.1, Eos % (Auto) 0.9, Baso % (Auto) 0.5, Neut # (Auto) 7.4, Lymph # (Auto) 1.1, [place] # (Auto) 0.7, Eos # (Auto) 0.1, Baso # (Auto) 0.1 04/13/23 23:54: VBG pH 7.35, VBG pCO2 33.3 L, VBG pO2 59.1 H, VBG HCO3 18.1 L, VBG Total CO2 19.1 L, VBG O2 Saturation 88.9 H, VBG Base Excess -7.5 L I & O for Last 24 hours: Intake & Output 04/12/23 04/12/23 04/13/23 04/14/23 00:59 23:59 23:59 23:59 Weight 88.451 kg Constitutional Constitutional: mild distress and cooperative *Routine HEENT Exam Head: Present normocephalic and atraumatic Eye: Present EOMI, PERRL and normal accommodation ENT: Present mucous membranes moist *Routine Neck Exam Neck: Present supple, full ROM and trachea midline *Routine Respiratory Exam Respiratory: Prese
--- NOTE | 2023-04-14 00:25 | HMH.EDGENADL ---
Discharge Plan Disposition Chief Complaint: Shortness of Breath/Dyspnea Clinical Impressions Clinical Impression: New onset a-fib, Acute exacerbation of chronic obstructive pulmonary disease Pneumonia Qualifiers: Pneumonia type: due to unspecified organism Laterality: right Lung location: middle lobe of lung Qualified Code(s): J18.9 - Pneumonia, unspecified organism Respiratory failure Qualifiers: Chronicity: acute Respiratory failure complication: hypoxia Qualified Code(s): J96.01 - Acute respiratory failure with hypoxia Discharge ED Provider: Cirilo Solomon General Adult HPI General Chief complaint: Shortness of Breath/Dyspnea Stated complaint: SOA Time Seen by Provider: 04/13/23 23:52 Mode of Arrival: EMS Source of Information: Patient and EMS Limitations: No Limitations Description of Symptoms (Recalled from ER Triage Doc. by RN): pt has been soa x 2 days, doesnt wear o2 at home was 85% on RA, ems placed on 3 L of O2 History of Present Illness HPI narrative: 72-year-old male, history as reported below presents with worsening shortness of breath since Thursday. Reports no fevers at home. He was found by EMS to be satting in the mid 80s on room air. He reports no significant chest pain. Reports mild nonspecific abdominal pain and decreased appetite over the last couple of days. No history of A-fib. Related Data Home Medications Medication Instructions Recorded Confirmed atorvastatin 40 mg tablet 40 mg PO HS Cholesterol 04/14/20 11/22/21 ergocalciferol (vitamin D2) 1,250 1,250 mcg PO WEEKLY vitamin 04/14/20 11/22/21 mcg (50,000 unit) capsule deficiancy lisinopril 40 mg tablet 40 mg PO DAILY htn 04/14/20 11/22/21 alprazolam 1 mg tablet 1 mg PO TID 04/14/23 04/14/23 aspirin 81 mg tablet,delayed 81 mg PO DAILY 04/14/23 04/14/23 release empagliflozin 10 mg tablet 10 mg PO DAILY 04/14/23 04/14/23 (Jardiance) ferrous sulfate 325 mg (65 mg 325 mg PO DAILY 04/14/23 04/14/23 iron) tablet,delayed release furosemide 40 mg tablet 40 mg PO DAILY 04/14/23 04/14/23 pantoprazole 40 mg tablet,delayed 40 mg PO DAILY 04/14/23 04/14/23 release (Protonix) Allergies Allergy/AdvReac Type Severity Reaction Status Date / Time No Known Drug Allergies Allergy Mild Verified 04/14/20 01:18 [NO KNOWN DRUG ALLERGIES] [facility] Disclaimer: The information contained in this section may have been updated after the patient was seen, as this information can be updated by other users. Social History Smoking Status: Current every day smoker alcohol intake: never current occupational status: employed Travel in the last 8 weeks: None household members: spouse housing: house ROS Obtained: Yes All systems reviewed & no additional complaints except as documented Physical Exam General General appearance: alert and other (Mild respiratory distress) Head Head exam: atraumatic and normocephalic Eye Eye exam: Present normal appearance, PERRL and EOMI ENT ENT exam: Present normal oropharynx and normal external ear exam Neck Neck exam: Present normal inspection and full ROM Chest Chest inspection: Present normal inspection and symmetric chest wall rise; Absent tenderness Respiratory Respiratory exam: Present other (Wheezes, crackles and prolonged expiratory phase bilaterally, mild respiratory distress with accessory muscle use) Cardiovascular Cardiovascular exam: Present regular rate and irregular rhythm Abdominal Exam Abdominal exam: Present soft; Absent distention, tenderness or guarding Extremities Exam Extremities exam: Present normal inspection and edema (Trace, nonpitting); Absent joint swelling Back Exam Back exam: Present normal inspection; Absent tenderness Neurological Exam Neurological exam: Present alert and oriented X3; Absent motor sensory deficit Psychiatric Psychiatric exam: Present normal affect and normal mood Skin Skin exam: Present warm, dry and normal color Lymphatic Lymphatic Find
[2023-04-14 00:33] LABS: Troponin I 0.03 ng/ml (0.00-0.034)
[2023-04-14 00:39] LABS: Chloride 107 mmol/L (98-107); Sodium 137 mmol/L (136-145)
[2023-04-14 00:41] LABS: Alanine Aminotransferase 15 U/L (12-78); Aspartate Amino Transferase 24 U/L (17-59); Blood Urea Nitrogen 18 mg/dl (9-20); Creatinine Clearance Estimated 51 mL/min (50-200); Estimated Glomerular Filt Rate 42 ml/min (>60); GFR (African American) 51 ML/MIN (>60)
[2023-04-14 00:42] LABS: Albumin Level 4.3 g/dl (3.5-5.0); Albumin/Globulin Ratio 1.5 (1.1-1.8); Alkaline Phosphatase 86 U/L (38-126); Bilirubin,Total 0.9 mg/dl (0.2-1.3); Calcium 8.9 mg/dl (8.4-10.2); Carbon Dioxide 20 mmol/L (22.0-30.0); Globulin 2.9 g/dL (1.3-3.2); Glucose 124 mg/dl (74-100); Total Protein,Serum 7.2 g/dl (6.3-8.2)
--- NOTE | 2023-04-14 00:47 | PC.NURSE ---
called report to Trupti KEYS on second floor and answered all questions
[2023-04-14 00:51] LABS: NT Pro Brain Natriuretic Pep. 15900 pg/mL (0-125)
--- NOTE | 2023-04-14 01:21 | PC.NURSE ---
Patient arrived to floor via wheelchair at 01:02.
[2023-04-14 03:29] LABS: Troponin I 0.03 ng/ml (0.00-0.034)
--- NOTE | 2023-04-14 05:09 | PC.NURSE ---
pt admitted for pneumonia. pt currently on 5l/nc. soa with exertion, sputum specimen to lab. pt received rocephin and zithromax.
[2023-04-14 06:05] LABS: POC Glucose,Bedside 165 (70-110)
[2023-04-14 06:10] LABS: Basophils % 0.3 % (0.1-2.0); Eosinophils % 0.2 % (0.1-12.0); Hematocrit 34.4 % (42.0-52.0); Hemoglobin 10.9 g/dL (14.1-18.0); Lymphocytes # 0.3 K/mm3 (0.7-4.5); Lymphocytes % 5.5 % (10-50); Mean Corpuscular HGB Conc 31.6 g/dL (31.8-35.4); Mean Corpuscular Hemoglobin 26.1 pg (27.0-31.2); Mean Corpuscular Volume 82.6 fl (80-94); Mean Platelet Volume 9.6 fl (7.4-10.4); Monocytes # 0.2 K/mm3 (0.1-1.0); Monocytes % 2.9 % (1.7-9.3); Neutrophils # 5.4 K/mm3 (1.8-7.8); Neutrophils % 91.1 % (37.0-80.0); Platelet Count 181 K/mm3 (142-424); Red Blood Count 4.17 M/mm3 (4.60-6.20); Red Cell Distribution Width 18.2 % (11.5-17.5); White Blood Count 5.9 K/mm3 (4.8-10.8)
[2023-04-14 06:13] LABS: MANUAL DIFFERENTIAL MANUAL DIFFERENTIAL (MANUAL DIFF)
[2023-04-14 06:25] LABS: Alanine Aminotransferase 14 U/L (12-78); Albumin Level 4.1 g/dl (3.5-5.0); Albumin/Globulin Ratio 1.4 (1.1-1.8); Alkaline Phosphatase 74 U/L (38-126); Anion Gap 14.8 mEq/L (5-15); Aspartate Amino Transferase 28 U/L (17-59); Bilirubin,Total 0.7 mg/dl (0.2-1.3); Blood Urea Nitrogen 18 mg/dl (9-20); Calcium 8.9 mg/dl (8.4-10.2); Carbon Dioxide 22 mmol/L (22.0-30.0); Chloride 105 mmol/L (98-107); Creatinine Clearance Estimated 52 mL/min (50-200); Estimated Glomerular Filt Rate 42 ml/min (>60); GFR (African American) 51 ML/MIN (>60); Glucose 153 mg/dl (74-100); Potassium 3.8 mmoL/L (3.5-5.1); Sodium 138 mmol/L (136-145); Total Protein,Serum 7.1 g/dl (6.3-8.2)
[2023-04-14 06:47] LABS: Lymphocytes % 4 % (10-50); Monocytes % 1 % (2-9); Neutrophils % 95 % (42-76); Total Cells Counted 100
[2023-04-14 06:48] LABS: Hypochromasia 1+; Microcytosis 1+; Platelet Estimate Normal
--- NOTE | 2023-04-14 07:42 | HMH.PHAINT1 ---
Pharmacy Intervention Comments: HOME MEDICATIONS VERIFIED USING LISTS FROM OUTPATIENT PHARMACY, PT INTERVIEW AND REVIEWING MEDICATION BOTTLES.
--- NOTE | 2023-04-14 11:52 | CA_ITS ---
APPROVED REPORT EXAM: Comprehensive 2D, Doppler, and color-flow Echocardiogram Certification Engineer: JEREMIAS Whittaker, RVS Ht: 6 ft 0 in Wt: 198lbs BSA: 2.12 BP: 145/107 mmHg Indications: CAD Hx- circimflex stent, AFIB,Pneumonia, COPD, DM, Smoker, HTN, HLD Echo Enhancing Agent Comments: Patient scanned upright in chair due to SOA 2D Dimensions IVSd 1.11 cm LVEF (Visual) 25.00 % PWd 1.37 cm LA Volume 96.20 mL LVDd 5.84 cm LA Volume Index 45.38 mL/m2 (M/F) 16-34 LVDs 4.71 cm Aortic Root 3.43 cm Left Atrium 3.68 cm LVOT 2.14 cm (M/F) 1.5-2.5 M-Mode Dimensions RVDd 3.36 cm (0.9-2.6) LA Diam 5.17 cm (1.9-4.0) LVDd 5.34 cm (3.5-5.7) Ao Diam 3.54 cm (2.0-3.7) LVDs 4.39 cm (3.5-5.7) IVSd 1.21 cm (0.6-1.1) PWd 1.35 cm (0.6-1.1) EF (Teich) 30.00% EPSs 0.90 cm FS 17.80% EDV (Teich) 137.70 mL TAPSE 1.91 (<1.7) ESV (Teich) 87.20 mL LV Diastology E Decel Time 260.00 (160-240 msec) E/A Ratio 1.17 MED E' 3.10 (< 7 cm/sec) MED A' 4.90 cm/s E'/MED E' Ratio 27.84 (>14) LAT E' 4.90 (<10 cm/sec) LAT A' 6.30 cm/s E/LAT E' Ratio 17.61 (>14) Aortic Valve LVOT Max 83.00 (70-110 cm/s) LVOT VTI 18.36 cm AoV Peak Jose Angel. 204.00 (50-130 cm/s) AO Peak GR. 16.70 mmHg AO Mean GR. 8.20 (<5 mmHg) AO VTI 41.91 (18-25 cm) CLARICE (VTI) 1.58 (2.5-4.5 cm2) Mitral Valve MV A Velocity 74.00 (40-130 cm/s) E/A Ratio 1.17 MV Decel. Time 260.00 (160-240 ms) Pulmonary Valve TX End VMAX 192.00 cm/s Tricuspid Valve TR P. Velocity 178.00 cm/s Left Ventricle The left ventricle is normal size. Left ventricular systolic function is severely decreased. There is marked increase in LV wall thickness (IVSd 1.6 cm). There is severe global hypokinesis present. The basal septal and inferoseptal LV maradiaga appear nearly akinetic. Grade 2 diastolic dysfunction is present. LVEF is 25%. Right Ventricle The right ventricle is not well-visualized. Atria The left atrium is moderately dilated. The right atrium is not well visualized. Aortic Valve The aortic valve leaflets are mildly thickened. Aortic sclerosis, but no evidence of aortic stenosis. Trace aortic regurgitation. Mitral Valve There is mild mitral annular calcification. The mitral valve leaflets are mildly thickened. No evidence of mitral valve stenosis. Mild mitral regurgitation. Tricuspid Valve The tricuspid valve leaflets are thin and pliable. Trace tricuspid regurgitation. RVSP is 15-20 mmHg. Pulmonic Valve The pulmonary valve is normal in structure. Mild pulmonic regurgitation. Great Vessels The aortic root is normal in size. The ascending aorta is normal in size. Pericardium There is no pericardial effusion. Large pleural effusion is present. Other Information Study Quality: Technically Difficult Conclusion Technically difficult study due to poor acoustic windows. Severe reduction in global LV systolic function (LVEF 25%). Severe global hypokinesis present. The basal septal and inferoseptal LV maradiaga appear nearly akinetic. Grade 2 diastolic dysfunction. The right ventricle is not well visualized. Mild MR. Large pleural effusion. Electronically signed by : Malissa Flanagan MD 04/14/2023 21:57:44
--- NOTE | 2023-04-14 11:54 | ECG_ITS ---
APPROVED REPORT Exam: Resting ECG HR:55 bpm ECG Measurements Heart Rate 55 AXES AR 209 P -26 QRSd 139 QRS -79 QT 531 T 136 QTc 520 Conclusion SINUS BRADYCARDIA WITH OCCASIONAL SUPRAVENTRICULAR PREMATURE COMPLEXES INTRAVENTRICULAR CONDUCTION DELAY [130+ ms QRS DURATION] ANTERIOR MYOCARDIAL INFARCTION , PROBABLY RECENT [40+ ms Q WAVE AND/OR ST/T ABNORMALITY IN V3/V4] ACUTE HI UNCONFIRMED REPORT Electronically signed by : Rivas Wilkinson MD 04/15/2023 21:13:49
[2023-04-14 13:16] LABS: POC Glucose,Bedside 169 (70-110)
--- NOTE | 2023-04-14 13:59 | EXP.CARD.CON ---
History of Present Illness History of Present Illness Consult date: 04/14/23 Requesting physician: Cristofer Longo Consult reason: shortness of breath Chief complaint: SOA History of present illness: This is a 72-year-old white gentleman who presented to the emergency department complaints of shortness of breath. He has a known past medical history of coronary artery disease, peripheral artery disease, COPD, chronic renal insufficiency and diabetes. The patient states that he has been having worsening shortness of breath since Thursday. He denies any associated lower extremity edema. He denies any chest pain or pressure. He states that his shortness of breath is worse with exertion and improves with rest. He does have orthopnea as well. The patient did call EMS due to his worsening and severe shortness of breath. His oxygen saturations were in the 80s at home on room air. The patient has also noticed a decreased appetite and some nonspecific diffuse abdominal pain as well. Upon arrival to the emergency department the patient was found to be in atrial fibrillation as well. He has since converted to sinus rhythm. He states that his shortness of breath has improved since being in the hospital and he is feeling much better. Of note the patient does report that he follows with cardiology, Dr. Leger in [facility]. He reports that he had previous coronary stenting in the year 1999. He had a repeat cardiac catheterization in 2013 with no stenting. He is also status post femoropopliteal in 2013. Dr. Leger is also following his abdominal aortic aneurysm. Preliminary echocardiogram shows an ejection fraction of 30%. The patient reports no history of congestive heart failure. [facility] Disclaimer: The information contained in this section may have been updated after the patient was seen, as this information can be updated by other users. Medical History (Updated 04/14/23 @ 14:09 by Carrie Kirkland APRN) Abdominal aortic aneurysm (AAA) CAD (coronary artery disease) Cardiomyopathy CHF (congestive heart failure) COPD (chronic obstructive pulmonary disease) Diabetes Heart failure with reduced ejection fraction Hyperlipidemia Hyperlipidemia associated with type 2 diabetes mellitus Hypertension Peripheral arterial disease Surgical History (Updated 04/14/23 @ 01:46 by Trupti Callejas RN) H/O Spinal surgery History of cardiac cath S/P femoral-popliteal bypass surgery Family History (Updated 04/14/23 @ 01:47 by Trupti Callejas RN) Father Lung cancer Mother Family history of myocardial infarction Social History Smoking Status: Current every day smoker alcohol intake: never current occupational status: employed Travel in the last 8 weeks: None household members: spouse housing: house Review of Systems Review of Systems Review of systems:: pertinent systems reviewed and negative unless documented below Constitutional Constitutional: Reports system reviewed and no additional complaints, except as documented, Reports lethargy and Reports weakness Eyes Eyes: Reports system reviewed and no additional complaints, except as documented ENT Ears, Nose, Mouth, and Throat: Reports system reviewed and no additional complaints, except as documented *Cardiovascular Cardiovascular: Reports system reviewed and no additional complaints, except as documented, Denies chest pain, Reports dyspnea, Reports dyspnea on exertion, Denies leg edema and Reports orthopnea *Respiratory Respiratory: Reports system reviewed and no additional complaints, except as documented, Reports chest congestion, Reports cough, Reports dyspnea, Reports dyspnea on exertion and Denies hemoptysis *Gastrointestinal Gastrointestinal: Reports system reviewed and no additional complaints, except as documented *Genitourinary Genitourinary: Reports system reviewed and no additional complaints, except as documented *Musculoskeletal Musculoskeletal: Reports system re
[2023-04-14 16:57] LABS: POC Glucose,Bedside 192 (70-110)
[2023-04-14 21:55] LABS: POC Glucose,Bedside 124 (70-110)
[2023-04-15] VITALS (9 sets, daily range): BP systolic 101–164; BP diastolic 60–70; PULSE 46–72; RESP 16–18; TEMP 36.4–37.5; O2SAT 93–99; BMI 27.5
--- NOTE | 2023-04-15 05:26 | PC.NURSE ---
pt has remained on 3l/nc. pt has been bradycardic with hr in the 40-50's. pt denies any s/s
[2023-04-15 06:35] LABS: Basophils % 0.3 % (0.1-2.0); Eosinophils # 0.1 K/mm3 (0.0-0.4); Eosinophils % 0.5 % (0.1-12.0); Hematocrit 33.4 % (42.0-52.0); Hemoglobin 10.8 g/dL (14.1-18.0); Lymphocytes # 1.5 K/mm3 (0.7-4.5); Lymphocytes % 16.3 % (10-50); Mean Corpuscular HGB Conc 32.2 g/dL (31.8-35.4); Mean Corpuscular Hemoglobin 26.5 pg (27.0-31.2); Mean Corpuscular Volume 82.5 fl (80-94); Mean Platelet Volume 9.2 fl (7.4-10.4); Monocytes # 0.8 K/mm3 (0.1-1.0); Monocytes % 8.4 % (1.7-9.3); Neutrophils # 6.7 K/mm3 (1.8-7.8); Neutrophils % 74.5 % (37.0-80.0); Platelet Count 217 K/mm3 (142-424); Red Blood Count 4.05 M/mm3 (4.60-6.20); Red Cell Distribution Width 18.2 % (11.5-17.5)
[2023-04-15 06:39] LABS: Alanine Aminotransferase 18 U/L (12-78); Albumin Level 4.1 g/dl (3.5-5.0); Albumin/Globulin Ratio 1.4 (1.1-1.8); Alkaline Phosphatase 66 U/L (38-126); Aspartate Amino Transferase 29 U/L (17-59); Bilirubin,Total 0.3 mg/dl (0.2-1.3); Blood Urea Nitrogen 32 mg/dl (9-20); Calcium 8.4 mg/dl (8.4-10.2); Carbon Dioxide 23 mmol/L (22.0-30.0); Chloride 101 mmol/L (98-107); Creatinine Clearance Estimated 44 mL/min (50-200); Estimated Glomerular Filt Rate 35 ml/min (>60); GFR (African American) 42 ML/MIN (>60); Globulin 2.9 g/dL (1.3-3.2); Glucose 120 mg/dl (74-100); Magnesium 2.1 mg/dl (1.6-2.3); Sodium 137 mmol/L (136-145)
[2023-04-15 06:44] LABS: POC Glucose,Bedside 123 (70-110)
[2023-04-15 06:50] LABS: Alanine Aminotransferase 16 U/L (12-78); Albumin Level 3.8 g/dl (3.5-5.0); Alkaline Phosphatase 63 U/L (38-126); Aspartate Amino Transferase 22 U/L (17-59); Bilirubin,Direct 0.2 mg/dl (0.0-0.4); Bilirubin,Indirect 0.2 mg/dL (0.0-0.9); Bilirubin,Total 0.4 mg/dl (0.2-1.3); Bilirubin,Unconjugated 0.2 mg/dL (0.0-1.1); Chol/HDL Ratio 3.4 (1-3.5); Cholesterol 122 mg/dl (140-200); HDL Cholesterol 36 mg/dl (40-60); Total Protein,Serum 6.5 g/dl (6.3-8.2); Triglycerides 82 mg/dl (30-150); VLDL Cholesterol 16 mg/dL (0-40)
[2023-04-15 07:01] LABS: Direct LDL Cholesterol 73.86 mg/dL (100-129)
--- NOTE | 2023-04-15 10:05 | EXP.DC.SUM ---
General Admission date:: 04/14/23 Discharge date: 04/15/23 HPI HPI HPI: This is a 72-year-old male, PMHx of coronary artery disease, COPD, chronic renal insufficiency, diabetes presented to ED with worsening shortness of breath since Thursday. Reports no fevers at home. He was found by EMS to be satting in the mid 80s on room air. He reports no significant chest pain. Reports mild nonspecific abdominal pain and decreased appetite over the last couple of days. No history of A-fib. however On arrival, patient is afebrile, in A-fib with wide-complex, hypertensive, satting 85% on room air, moving all extremities spontaneously. Admitted for further work up. . Hospital Course Hospital Course Hospital Course: 72-year-old male, PMHx of coronary artery disease, COPD, chronic renal insufficiency, diabetes presented to ED with worsening shortness of breath since Thursday. Reports no fevers at home. He was found by EMS to be satting in the mid 80s on room air. He reports no significant chest pain. Reports mild nonspecific abdominal pain and decreased appetite over the last couple of days. No history of A-fib. however On arrival, patient is afebrile, in A-fib with wide-complex, hypertensive, satting 85% on room air. Patient admitted to medicine for management of pneumonia and CHF. Cardiology was consulted. Work-up shows reduction in ejection fraction that is worsened over the past year. Started on antibiotics for pneumonia. Patient diuresed. Transition to room air given good response to diuresis. We will continue oral antibiotics to complete course for pneumonia. Patient declined on interventions at our facility. Recommend close follow-up with his frame nailer in [place]. Stable for discharge home with continued medical management of his condition. LifeVest placed prior to discharge. Problems addressed as follows: -Dyspnea secondary to community acquired PNA. -Acute hypoxemic respiratory failure secondary to pneumonia and CHF Patient admitted for management of pneumonia and respiratory failure. Started on ceftriaxone and azithromycin. Will complete 5-day course of azithromycin. White cell count normal at 9 on morning of discharge. Able to wean to room air on day of discharge with diuresis. Of note patient's PSI/port score on admission was 114. - New onset Afib: -Acute on chronic heart failure with reduced ejection fraction Cardiology consulted, appreciate their recommendations. Echo showed ejection fraction approximately 25%. Initially started on metoprolol 25 mg daily however given his bradycardia, will decrease to 6.25 mg daily metoprolol tartrate. Given his [id number] score of at least 5, would recommend anticoagulation however he recently had significant anemia from GI bleed. Therefore we are holding on oral anticoagulation at this time. Findings on echo concerning for severe global hypokinesis, basal septal and inferior septal LV wall akinesis. Discussed need for heart cath, patient deferred and did not want to have this procedure performed at our facility. We did discuss the significance of risk for acute sudden cardiac arrest and therefore need for external defibrillator. Patient agreeable to LifeVest prior to discharge. We will medically manage with Jardiance, spironolactone, Entresto, Lasix for his heart failure. Responded well to diuresis during admission. Continue statin per home regimen. LDL 73 during admission. Due to the patient's reduced LVEF and increased wall thickness the patient should undergo evaluation for infiltrative disease especially amyloidosis. We do recommend that the patient have amyloidosis, PYP scan and a cardiac MRI with amyloidosis protocol on an outpatient basis. However, we will leave this up to Dr. Leger. - Mild anemia likely of CKD: Hemoglobin 10.8 during admission. Stable. Continue iron supplementation. Discontinued vitamin C as there is no clear benefit to increasing absorption. Patient'
--- NOTE | 2023-04-15 11:26 | EXP.CARD.PN ---
Subjective Subjective Date: 04/15/23 Time: 10:00 Principal diagnosis: HFrEF, CAD Interval history: This is a 72-year-old white gentleman who presented to the emergency department complaints of shortness of breath. The patient was having shortness of breath and orthopnea as well. The patient was found to have an acute exacerbation of HFrEF. The patient's ejection fraction is down to around 25%. He does have a known history of coronary artery disease with previous stenting in the past. The patient was also in atrial fibrillation. He has converted back to sinus rhythm at this time. We did get his records from his safety specialist, Dr. Leger. The patient does have a known history of coronary artery disease with cardiomyopathy. His ejection fraction was around 35 to 45% and 2021. The patient had recent anemia with a hemoglobin around 3 or 4 according to his safety specialist notes. The patient was transfused with 4 units of packed red blood cells and his Plavix was stopped. According to Dr. Leger's notes the patient has stated that he did not want any further testing or procedures at this time. The patient opted for medical therapy and quality of life. His family and him decided that he would be a DNR at his last visit with Dr. Leger. Today the patient states that he is feeling better. He states that his shortness of breath improved with diuresis. He denies any chest pain or pressure. He denies any lower extremity edema. He denies any fever, chills, nausea, vomiting, diarrhea. Exam Data for Last 24 hours Vital signs and Labs for Last 24 Hours: Temp Pulse Resp BP Pulse Ox O2 Del Method O2 Flow Rate 99.5 F 72 16 104/63 L 95 Room Air 3 04/15/23 07:50 04/15/23 11:11 04/15/23 07:50 04/15/23 07:50 04/15/23 11:11 04/15/23 11:11 04/15/23 09:00 Laboratory Results - last 24 hr 04/14/23 10:28: POC Glucose 169 H 04/14/23 16:49: POC Glucose 192 H 04/14/23 21:48: POC Glucose 124 H 04/15/23 06:11: WBC 9.0 D, RBC 4.05 L, Hgb 10.8 L, Hct 33.4 L, MCV 82.5, MCH 26.5 L, MCHC 32.2, RDW 18.2 H, Plt Count 217, MPV 9.2, Neut % (Auto) 74.5, Lymph % (Auto) 16.3, Burnet % (Auto) 8.4, Eos % (Auto) 0.5, Baso % (Auto) 0.3, Neut # (Auto) 6.7, Lymph # (Auto) 1.5, Burnet # (Auto) 0.8, Eos # (Auto) 0.1, Baso # (Auto) 0.0, Sodium 137, Potassium 4.0, Chloride 101, Carbon Dioxide 23, Anion Gap 17.0 H, BUN 32 H D, Creatinine 1.90 H, Estimated Creat Clear 44, Estimated GFR 35 L, Est GFR ( Amer) 42 L, Glucose 120 H, Calcium 8.4, Magnesium 2.1, Total Bilirubin 0.3 04/15/23 06:11: Total Bilirubin 0.4, Direct Bilirubin 0.2, Conjugated Bilirubin 0.0, Indirect Bilirubin 0.2, Unconjugated Bilirubin 0.2, AST 29 04/15/23 06:11: AST 22, ALT 18 D 04/15/23 06:11: ALT 16, Alkaline Phosphatase 66 04/15/23 06:11: Alkaline Phosphatase 63, Total Protein 7.0 04/15/23 06:11: Total Protein 6.5, Albumin 4.1 04/15/23 06:11: Albumin 3.8, Globulin 2.9, Albumin/Globulin Ratio 1.4, Triglycerides 82, Cholesterol 122 L, LDL Cholesterol Direct 73.86 L, VLDL Cholesterol 16, HDL Cholesterol 36 L, Cholesterol/HDL Ratio 3.4 04/15/23 06:36: POC Glucose 123 H I & O for Last 24 hours: Intake & Output 04/12/23 04/13/23 04/14/23 04/15/23 23:59 23:59 23:59 23:59 Intake Total 720 / 720 270 / 270 Output Total 0 / 0 200 / 200 Balance 720 / 720 70 / 70 Weight 195 lb 198 lb 7 oz 203 lb 2 oz Constitutional Constitutional: no acute distress and average body habitus Comments: Echocardiogram shows Technically difficult study due to poor acoustic windows. Severe reduction in global LV systolic function (LVEF 25%). Markedly increased LV wall thickness (IVSd 1.6 cm). Severe global hypokinesis present. The basal septal and inferoseptal LV maradiaga appear nearly akinetic. Grade 2 diastolic dysfunction. The right ventricle is not well visualized. Mild MR. Large pleural effusion. Due to reduced LVEF and increased LV wall thickness, as well as aortic valve thickening and reduction disease, furthe
[2023-04-15 11:29] LABS: POC Glucose,Bedside 118 (70-110)
[2023-04-15 17:10] LABS: POC Glucose,Bedside 102 (70-110)
--- NOTE | 2023-04-16 13:57 | CARE MANAGER ---
Contacted patient related to hospital discharge. He states he is doing well. He is getting his prescriptions this afternoon and we reviewed the medications they wanted him to stop. He is aware of follow up appointments and denies questions or concerns. LUDMILA Jett
== END 2023-04-15 17:57 | disposition home or self-care (01) | DRG 193 ==
LOC: ER 23:54 → 2ND 04-14 01:22
PROVIDERS: Nurse Practitioner Family; Admitting Provider Internal Medicine Adolescent Medicine; Emergency Provider Emergency Medicine; PCP Family Medicine; Visit Provider Internal Medicine Adolescent Medicine
DX: J18.9 Pneumonia, unspecified organism (principal); I50.23 Acute on chronic systolic (congestive) heart failure; J96.01 Acute respiratory failure with hypoxia; J44.0 Chronic obstructive pulmonary disease with (acute) lower respiratory infection; I13.0 Hypertensive heart and chronic kidney disease with heart failure and stage 1 through stage 4 chronic kidney disease, or unspecified chronic kidney disease; I42.9 Cardiomyopathy, unspecified; I25.10 Atherosclerotic heart disease of native coronary artery without angina pectoris; E11.22 Type 2 diabetes mellitus with diabetic chronic kidney disease; I48.91 Unspecified atrial fibrillation; E11.69 Type 2 diabetes mellitus with other specified complication; D63.1 Anemia in chronic kidney disease; N18.32 Chronic kidney disease, stage 3b; I71.40 Abdominal aortic aneurysm, without rupture, unspecified; Z71.6 Tobacco abuse counseling; Z95.5 Presence of coronary angioplasty implant and graft; E11.51 Type 2 diabetes mellitus with diabetic peripheral angiopathy without gangrene; F17.200 Nicotine dependence, unspecified, uncomplicated; N18.9 Chronic kidney disease, unspecified; E78.2 Mixed hyperlipidemia
CPT/HCPCS: 36415; 71045; 80053; 80061; 80076; 82803; 82962; 83735; 83880; 84484; 85007; 85025; 87040; 87070; 87205; 93005; 93306; 94640; 99285; J0456; J0696